=== PATIENT | female | born 1975 | race Hispanic/Latino ===

== ENCOUNTER 2018-05-12 21:07 | Emergency (ER) | payer SELFPAY ==
--- NOTE | 2018-05-12 22:42 | ER ---
Nurse's Notes [facility] Name: Halley Hope Age: 42 yrs Sex: Female : 1975 Arrival Date: 05/12/2018 Time: 21:09 Bed 15 Private MD: Diagnosis: Headache;Vomiting without nausea;Dysmenorrhea, unspecified;Urinary tract infection, site not specified Presentation: 05/12 21:33 Presenting complaint: Patient states: Headache that began around 1900, sensitivity to lp1 light, nausea; Began antibiotics due to toothache today. Transition of care: patient was not received from another setting of care. Onset of symptoms was May 12, 2018 at 19:00. Risk Assessment: Do you want to hurt yourself or someone else? Patient reports no desire to harm self or others. Initial Sepsis Screen: Does the patient meet any 2 criteria? No. Patient's initial sepsis screen is negative. Does the patient have a suspected source of infection? No. Patient's initial sepsis screen is negative. Care prior to arrival: None. 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 - Social history:: Smoking status: Patient/guardian denies using tobacco. - Ebola Screening: : No symptoms or risks identified at this time. Screenin:29 Abuse screen: Denies threats or abuse. Denies injuries from another. Nutritional ao screening: No deficits noted. Tuberculosis screening: No symptoms or risk factors identified. Fall Risk None identified. Assessment: 22:22 General: Appears in no apparent distress. comfortable, Behavior is calm, cooperative, ao appropriate for age. Pain: Denies pain. Neuro: Level of Consciousness is awake, alert, obeys commands, Oriented to person, place, time, situation, Appropriate for age Moves all extremities. Full function Gait is steady, Speech is normal. Cardiovascular: Heart tones S1 S2 Capillary refill < 3 seconds Patient's skin is warm and dry. Respiratory: Airway is patent Respiratory effort is even, unlabored, Respiratory pattern is regular, symmetrical. GI: Abdomen is non-distended. : Urine is liudmila blood, Reports Menstruation cycle. EENT: No signs and/or symptoms were reported regarding the EENT system. Derm: Skin is intact, Skin is pink, warm \T\ dry. normal, Skin temperature is warm. Musculoskeletal: Circulation, motion, and sensation intact. Range of motion:. 22:50 Reassessment: Pending DC due to urine sample. ao 23:24 Reassessment: Patient provided with urine sample and was bloody since patient report to ao be on her menstruation cycle. Dr Sarkar was notified and would like to do straight cath. Patient agree and waiting to get straight cath done. Vital Signs: 21:35 BP 134 / 98; Pulse 70; Resp 18; Temp 99(O); Pulse Ox 100% on R/A; Weight 74.84 kg; lp1 Height 5 ft. 2 in. (157.48 cm); Pain 6/10; 23:29 BP 123 / 88; Pulse 72; Resp 16; Pulse Ox 100% ; ao 21:35 Body Mass Index 30.18 (74.84 kg, 157.48 cm) lp1 ED Course: 21:09 Patient arrived in ED. ds1 21:35 Triage completed. lp1 21:36 Arm band placed on right wrist. lp1 22:12 Sebastián Sarkar MD is Attending Physician. jon 22:23 Hema Antunez, ALICIA is Primary Nurse. ao 23:29 Patient has correct armband on for positive identification. Pulse ox on. NIBP on. ao 05/13 00:51 No provider procedures requiring assistance completed. Patient did not have IV access ao during this emergency room visit. Administered Medications: 05/12 22:42 Not Given (Duplicate Order): Zofran 4 mg IVP once; over 2 minutes jon 22:49 Not Given (Patient Refused): Zofran 4 mg PO once ao 05/13 00:37 Drug: Augmentin 875 mg Route: PO; ao 01:00 Follow up: Response: No adverse reaction ao Outcome: 05/12 22:42 Discharge ordered by . jon 05/13 00:51 Discharged to home ambulatory. ao Condition: stable Discharge instructions given to patient, Instructed on discharge instructions, follow up and referral plans. Demonstrated understanding of instructions, follow-up care, medications, Prescriptions given X 3. 00:51 Patient left the ED. ao Signatures: Sebastián Sarkar MD MD cha Sanford, Demi ds1 Aretha Littlejohn RN RN lp1 Hema Antunez RN RN ao
--- NOTE | 2018-05-12 22:42 | EDPHYS ---
Physician Documentation [facility] Name: Halley Hope Age: 42 yrs Sex: Female : 1975 Arrival Date: 05/12/2018 Time: 21:09 Bed 15 Private MD: ED Physician Sebastián Sarkar HPI: 05/12 22:39 This 42 yrs old Female presents to ER via Ambulatory with complaints of jon Nausea, Headache. 22:39 The patient presents to the emergency department with nausea. Onset: The jon symptoms/episode began/occurred just prior to arrival. Possible causes: allergic reaction to codeine, better now. The symptoms are aggravated by nothing. The symptoms are alleviated by nothing. Associated signs and symptoms: Pertinent positives: nausea, vomiting. Severity of symptoms: At their worst the symptoms were mild in the emergency department the symptoms have improved moderately. The patient has experienced similar episodes in the past, a few times. 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 - Social history:: Smoking status: Patient/guardian denies using tobacco. - Ebola Screening: : No symptoms or risks identified at this time. ROS: 22:40 Constitutional: Negative for fever, chills, and weight loss, Eyes: Negative for injury, jon pain, redness, and discharge, ENT: Negative for injury, pain, and discharge, Neck: Negative for injury, pain, and swelling, Cardiovascular: Negative for chest pain, palpitations, and edema, Respiratory: Negative for shortness of breath, cough, wheezing, and pleuritic chest pain, Back: Negative for injury and pain, : Negative for injury, bleeding, discharge, and swelling, MS/Extremity: Negative for injury and deformity, Skin: Negative for injury, rash, and discoloration, Psych: Negative for depression, anxiety, suicide ideation, homicidal ideation, and hallucinations, Allergy/Immunology: Negative for hives, rash, and allergies, Endocrine: Negative for neck swelling, polydipsia, polyuria, polyphagia, and marked weight changes. 22:40 Abdomen/GI: Positive for nausea, vomiting. 22:40 Neuro: Positive for headache. Exam: 22:40 Constitutional: This is a well developed, well nourished patient who is awake, alert, jon and in no acute distress. Head/Face: Normocephalic, atraumatic. Eyes: Pupils equal round and reactive to light, extra-ocular motions intact. Lids and lashes normal. Conjunctiva and sclera are non-icteric and not injected. Cornea within normal limits. Periorbital areas with no swelling, redness, or edema. ENT: Nares patent. No nasal discharge, no septal abnormalities noted. Tympanic membranes are normal and external auditory canals are clear. Oropharynx with no redness, swelling, or masses, exudates, or evidence of obstruction, uvula midline. Mucous membranes moist. Neck: Trachea midline, no thyromegaly or masses palpated, and no cervical lymphadenopathy. Supple, full range of motion without nuchal rigidity, or vertebral point tenderness. No Meningismus. Chest/axilla: Normal chest wall appearance and motion. Nontender with no deformity. No lesions are appreciated. Cardiovascular: Regular rate and rhythm with a normal S1 and S2. No gallops, murmurs, or rubs. Normal PMI, no JVD. No pulse deficits. Respiratory: Lungs have equal breath sounds bilaterally, clear to auscultation and percussion. No rales, rhonchi or wheezes noted. No increased work of breathing, no retractions or nasal flaring. Abdomen/GI: Soft, non-tender, with normal bowel sounds. No distension or tympany. No guarding or rebound. No evidence of tenderness throughout. Back: No spinal tenderness. No costovertebral tenderness. Full range of motion. Skin: Warm, dry with normal turgor. Normal color with no rashes, no lesions, and no evidence of cellulitis. MS/ Extremity: Pulses equal, no cyanosis. Neurovascular intact. Full, normal range of motion. Neuro: Awake and alert, GCS 15, oriented to person, place, time, and situation. Cranial nerves II-XII grossly intact. Motor strength 5/5 in all extremities. Sensory grossly intact. Cerebellar exam normal. Normal gait. Psych: Awake, alert, with orientation to person, place and time. Behavior, mood, and affect are within normal limits. 22:40 Neck: ROM/movement: is normal, no acute changes, Meningeal signs: are not present, Kernig's sign is negative, Brudzinski's sign is negative. Vital Signs: 21:35 BP 134 / 98; Pulse 70; Resp 18; Temp 99(O); Pulse Ox 100% on R/A; Weight 74.84 kg; lp1 Height 5 ft. 2 in. (157.48 cm); Pain 6/10; 23:29 BP 123 / 88; Pulse 72; Resp 16; Pulse Ox 100% ; ao 21:35 Body Mass Index 30.18 (74.84 kg, 157.48 cm) lp1 MDM: 22:12 Patient medically screened. [facility] 22:43 Data reviewed: vital signs, nurses notes, lab test result(s), urinalysis. [facility] 05/12 22:39 Order name: Urine Dipstick-Ancillary (obtain specimen); Complete Time: 22:51 [facility] 05/12 22:39 Order name: Urine Test (obtain specimen); Complete Time: 22:51 jon Administered Medications: 22:42 Not Given (Duplicate Order): Zofran 4 mg IVP once; over 2 minutes [facility] 22:49 Not Given (Patient Refused): Zofran 4 mg PO once ao 05/13 00:37 Drug: Augmentin 875 mg Route: PO; ao 01:00 Follow up: Response: No adverse reaction ao Disposition: 05/12/18 22:42 Discharged to Home. Impression: Headache, Vomiting without nausea, Dysmenorrhea, unspecified, Urinary tract infection, site not specified. - Condition is Stable. - Discharge Instructions: General Headache Without Cause, Nausea and Vomiting, Adult, General Headache Without Cause, [id number]. - Prescriptions for Zofran 4 mg Oral Tablet - take 1 tablet by ORAL route every 12 hours As needed; 10 tablet. Augmentin 875- 125 mg Oral Tablet - take 1 tablet by ORAL route every 12 hours for 7 days; 14 tablet. Tramadol 50 mg Oral Tablet - take 1 tablet by ORAL route every 8 hours as needed; 24 tablet. - Medication Reconciliation Form, Thank You Letter, Antibiotic Education, Prescription Opioid Use form. - Follow up: Private Physician; When: 2 - 3 days; Reason: Recheck today's complaints, Continuance of care, Re-evaluation by your physician. - Problem is new. - Symptoms have improved. 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 [facility] 22:36 22:18 URINE --ANCILLARY+UC.LAB.BRZ ordered. [facility] 05/13 00:31 05/12 22:42 05/12/2018 22:42 Discharged to Home. Impression: Headache; Vomiting without jon nausea. Condition is Stable. Forms are Medication Reconciliation Form, Thank You Letter, Antibiotic Education, Prescription Opioid Use. Follow up: Private Physician; When: 2 - 3 days; Reason: Recheck today's complaints, Continuance of care, Re-evaluation by your physician. Problem is new. Symptoms have improved. [facility] 05/13 00:51 00:31 05/12/2018 22:42 Discharged to Home. Impression: Headache; Vomiting without ao nausea; Dysmenorrhea, unspecified; Urinary tract infection, site not specified. Condition is Stable. Discharge Instructions: General Headache Without Cause, Nausea and Vomiting, Adult, General Headache Without Cause, Lrnu-uv-[id number]. Prescriptions for Zofran 4 mg Oral Tablet - take 1 tablet by ORAL route every 12 hours As needed; 10 tablet. and Forms are Medication Reconciliation Form, Thank You Letter, Antibiotic Education, Prescription Opioid Use. Follow up: Private Physician; When: 2 - 3 days; Reason: Recheck today's complaints, Continuance of care, Re-evaluation by your physician. Problem is new. Symptoms have improved. [facility]
[2018-05-12] MEDS ORDERED: ONDANSETRON 4 MG (ODT) TAB ONE (22:54)
[2018-05-13] MEDS ORDERED: AMOX/K CLAV 875 MG TAB ONE (00:40)
== END 2018-05-13 00:51 | disposition home or self-care (01) ==
LOC: ER 21:07
DX: N39.0 Urinary tract infection, site not specified (principal); R11.10 Vomiting, unspecified; N94.6 Dysmenorrhea, unspecified; Z88.5 Allergy status to narcotic agent
CPT/HCPCS: 99283

== ENCOUNTER 2021-10-31 23:26 | Emergency (ER) | payer BC, SELFPAY ==
--- OUTSIDE RECORDS SUMMARY | 2021-10-31 23:29 | XMS REPORT | Continuity of Care Document ---
:1975 Author Organization [facility] t Address [address] [place] [address] Care Team Providers Name Role Phone ERROL Bear [facility] Primary Care Physic suellen Unavailable GREEN Attending Clinician Unavailable Green LEAVE MANAGER Attending Clinician Only, Db Test Attending Clinician Unavailable Lab, Fam Pob I Attending Clinician Unavailable Candy LEAVE MANAGER, J Attending Clinician Les LEAVE MANAGER, B Attending Clinician LES B Attending Clinician Unavailable Doctor Unassigned, Name Attending Clinician Unavailable Payers Payer Name Policy Type Policy Number Effective Date Expiration Date S [employer]achi [facility] [id number] 2021 00:00:00 [place] [place] [id number] 2020 2021 WOMEN 00:00:00 00:00:00 Problems Condition Condition Condition Status Onset Resolution Last Treating Co mments Source Name Details Category Date Date Treatment Clinician Date No known No known Disease Unive rs active active ity of problems problems [facility] Allergies, Adverse Reactions, Alerts Allergy Allergy Status Severity Reaction(s) Onset Inactive Treating Comm ents Source Name Type Date Date Clinician CODEINE DRUG Active High N/V Univers INGREDI 3- ity of 00:00: [address] Codeine Propensi Active Nausea Univers ty to and/or 10-31 ity of adverse Vomiting 00:00: [place] reaction 00 [facility] [place] NO KNOWN Drug Active Univers ALLERGIE Class ity of S [facility] Social History Social Habit Start Date Stop Date Quantity Comments Source Exposure to Not sure [facility] SARS-CoV-2 (event) Medica l Branch Sex Assigned At [birth year] [facility] 00:00:00 00:00:00 Medical Branch Smoking Status Start Date Stop Date Source Unknown if ever smoked [facility] Medications Ordered Filled Start Stop Current Ordering Indication Dosage Frequency Signature Comments Components Source Medication Medication Date Date Medication? Clinician (SIG) Name Name ondansetron 0 Yes [id number] 4mg Take 1 Univers 4 mg 3-29 tablet by ity of disintegrat 00:00: mouth [place] ing tablet 00 every 8 Medica l (eight) Branch hours as needed for Nausea and Vomiting (N/V). dexamethaso 2019-08- No 10mg 10 mg, IV Univers ne 09-19 12-15 Push, ity of (DECADRON 21:45: 21:06 ONCE, 1 [place] 00 :00 dose, Tue Medi wil injection 07/19/20 Branch 10 mg at 1545, STAT ketorolac 2019-08- No 15mg 15 mg, Unive rs (TORADOL) 09-19 12-15 Slow IV ity of injection 21:45: 21:03 Push, [place] 15 mg 00 :00 ONCE, 1 Medical dose, [facility] Branch 07/19/20 at 1545, RADHA
Fa culty member approving Restricted medication : ODALYS WHEELER diphenhydrA 2019-08 2020- No 25mg 25 mg, Uni vers MINE 2- 12-15 Slow IV ity of (BENADRYL) 21:45: 21:08 Push, [place] injection 00 :00 ONCE, 1 Medical 25 mg dose, [facility] Branch 07/19/20 at 1545, STAT metoclopram 2019-08- No 10mg 10 mg, Uni vers nalini HCl - 12-15 Slow IV ity of (REGLAN) 21:45: 21:04 Push, [place] injection 00 :00 ONCE, 1 Medical 10 mg dose, [facility] Branch 07/19/20 at 1545, RADHA NaCl 0.9% 2019-08 2020- No 1000mL at 999 Uni vers (NS) bolus 2-15 12-15 mL/hr, ity of infusion 20:45: 21:37 1,000 mL, Jesus as 1,000 mL 00 :00 IV Medical Infusion, Branch ONCE, 1 dose, [facility] 07/19/20 at 1445, RADHA cloNIDine 2020 2020- No .1mg 0.1 mg, Univ ers (CATAPRES) 2-15 12-15 Oral, ity of tablet 0.1 20:45: 19:35 ONCE, 1 Jesus as mg 00 :00 dose, [facility] 07/19/20 Branch at 1445, STAT metoclopram 2019-08 Yes [id number] 10mg Take 1 Univers nalini HCl 10 2-15 tablet by ity of mg tablet 00:00: mouth [place] 00 every 6 Medical (six) Branch hours as needed for Nausea and Vomiting (N/V). butalbital- 2019-08 Yes [id number] 1{tbl} Take 1 Univers acetaminoph 2-15 tablet by ity of en-caff 00:00: mouth [place] 50-325-40 00 every 6 Medical mg tablet (six) Branch hours as needed for Pain (scale 7-10). metoclopram 2019-08 Yes [id number] 10mg Take 1 Univers nalini HCl 10 2-15 tablet by ity of mg tablet 00:00: mouth [place] 00 every 6 Medical (six) Branch hours as needed for Nausea and Vomiting (N/V). butalbital- 2019-08 Yes [id number] 1{tbl} Take 1 Univers acetaminoph 2-15 tablet by ity of en-caff 00:00: mouth [place] 50-325-40 00 every 6 Medical mg tablet (six) Branch hours as needed for Pain (scale 7-10). metoclopram 2019-08 Yes [id number] 10mg Take 1 Univers nalini HCl 10 2-15 tablet by ity of mg tablet 00:00: mouth [place] 00 every 6 Medical (six) Branch hours as needed for Nausea and Vomiting (N/V). butalbital- 2019-08 Yes [id number] 1{tbl} Take 1 Univers acetaminoph 2-15 tablet by ity of en-caff 00:00: mouth [place] 50-325-40 00 every 6 Medical mg tablet (six) Branch hours as needed for Pain (scale 7-10). metoclopram 2019-08 Yes [id number] 10mg Take 1 Univers nalini HCl 10 2-15 tablet by ity of mg tablet 00:00: mouth [place] 00 every 6 Medical (six) Branch hours as needed for Nausea and Vomiting (N/V). butalbital- 2019-08 Yes [id number] 1{tbl} Take 1 Univers acetaminoph 2-15 tablet by ity en-caff 00:00: mouth [place] 50-325-40 00 every 6 Medical mg tablet (six) Branch hours as needed for Pain (scale 7-10). No known No Univers medications [facility] Vital Signs Vital Name Observation Time Observation Value Comments Source Systolic blood 2021-10-31 14:43:00 122 mm[Hg] Univer sity [facility] Diastolic blood 2021-10-31 14:43:00 90 mm[facility]Hg] [facility] 2021-10-31 14:43:00 98 /min [facility] Body temperature 2021-10-31 14:43:00 36.89 Niya [facility] Respiratory rate 2021-10-31 14:43:00 16 /min [facility] Body height 2021-10-31 14:43:00 157.5 cm [facility] Body weight 2021-10-31 14:43:00 78.019 kg [facility] BMI 2021-10-31 14:43:00 31.46 kg/m2 [facility] Oxygen saturation in 2021-10-31 14:43:00 98 /min University of Arterial blood by [facility] Pulse oximetry Branch Systolic blood 2020-07-19 21:32:00 118 mm[facility]Hg[facility] 2020-07-19 21:32:00 75 mm[Hg] [facility] rate 2020-07-19 21:32:00 58 /min [facility] Respiratory rate 2020-07-19 21:32:00 16 /min [facility] Oxygen saturation in 2020-07-19 21:32:00 99 /min University of Arterial blood by [facility] Pulse oximetry Branch Body temperature 2020-07-19 19:28:00 36.89 [facility] Body weight 2020-07-19 19:28:00 77.111 kg [facility] Procedures Procedure Date / Time Performed Performing Clinician Sourc e POCT MOLECULAR FLU 2021-10-31 14:54:00 Juany Varmacarmen Mapo y [facility] POCT TEST 2020-07-19 19:33:00 Miguel Angel Malik [facility] NOTICE OF PRIVACY 2020-07-19 19:21:48 Doctor Unassigned, No [facility] CONSENT/REFUSAL FOR 2020-07-19 19:21:31 Doctor Unassigned, No [facility] AND Name [facility] TREATMENT REFERRAL- Doctor Unassigned, No Univer [facility] REQUEST/RESPONSE Name [facility] Plan of Care Planned Activity Planned Date Details Comments Source Encounters Start End Encounter Admission Attending Care Care Encounter Source Date/Time Date/Time Type Type Clinicians Facility Department ID 2021-10-31 2021-10-31 Outpatient R ISADORA [facility] [id number] Univers 09:50:00 [facility]11[facility] 2021-10-31 2021-10-31 Urgent Isadora [facility] [id number] Univers 09:50:00 10:11:20 Care [employer] [id number] it y of [place] [id number] Jesus as LAURIE?BLEA [id number] [address] MEDICAL OFFICE BUILDING 2021-10-31 2021-10-31 Outpatient R [facility] [id number] Univers 09:50:00 09:50:00 [id number] [facility] 2021-08-09 2021-08-09 Outpatient R ISADORA [facility] [id number] Univers 16:00:00 18:41:51 [facility] 2021-08-09 2021-08-09 Laboratory Only, Ang Db Test [facility] 1.2.8 40.114 [id number] Univers 16:00:00 16:15:00 Only IsadoraVitrina [id number] [facility] [id number] Jesus as LAURIE?BLEA [id number] [address] MEDICAL OFFICE BUILDING 2021-08-09 2021-08-09 Outpatient [facility] [id number] Univers 16:00:00 16:00:00 [id number] ity of [facility] 2020-07-27 2020-07-27 Laboratory Lab, Adc Fam Pob I [facility] 1.2. [id number] [id number] Univers 18:58:08 19:18:08 Only Sera Gupta [facility] [id number] ity of [place] [id number] Jesus as Professio [id number] Hi dical nal [address] [place] Office [facility] 2020-07-19 2020-07-19 Emergency Les, [facility] [id number] Univers 13:23:00 15:39:00 Miguel Angel B Richelle [id number] i ty of [place] [id number] [place] [id number] [facility] [address] [place] 2020-07-19 2020-07-19 Emergency X LES, [facility] ERT [id number] Univers 13:23:00 13:23:00 MIGUEL ANGEL ity of [facility] Orders Doctor STACY [id number] Univers 00:00:00 00:00:00 Only Unassigned RAEGAN [id number] ity of [place] [facility] [id number] Jesus as [id number] [facility] [address] [place] Results Test Description Test Time Test Comments Results Result Comments Source POCT MOLECULAR FLU 2021-10-31 15:06:17 Test Item Value Reference Range Interpretation Comme nts POCT Molecular FluA (test code = 66610-8) Negative Negative POCT Molecular FluB (test code = 76477-9) Negative Negative Lab Interpretation (test code = 85603-4) [id number] 19:33:00 Test Item Value Reference Range Interpretation Comments POCT PREG (test code = 1605) negative Lab Interpretation (test code = Normal 42813-8) [facility]
[2021-11-01 00:49] LABS: Urine Blood 3+ (Negative); Urine Glucose Negative (Negative); Urine Protein 1+ (Negative); Urine Specific Gravity <=1.005 (1.005-1.030); Urine pH 5.5 (5.0-7.0)
[2021-11-01] MEDS ORDERED: NA CHLORIDE 0.9% 2,000 ML ONE (00:56)
[2021-11-01] MEDS ORDERED: FAMOTIDINE 20 MG/2 ML VIAL IV ONE (00:56)
[2021-11-01] MEDS ORDERED: CIPROFLOXACIN 400mg IV 400 MG/200 ML BAG IV ONE (00:57)
[2021-11-01] MEDS ORDERED: METRONIDAZOLE 500mg IVPB 500 MG/100 ML BAG IV ONE (00:57)
[2021-11-01 01:04] LABS: Absolute Lymphocytes (CBC) 0.7 K/uL (0.7-4.9); Hematocrit 40.4 % (36.0-45.0); Lymphocytes % 17.4 % (15.3-44.8); MPV 8.5 fL (7.6-11.3); RBC Red Blood Cell Count 4.91 M/uL (3.86-4.86)
[2021-11-01 01:15] LABS: ALT/SGPT 26 U/L (12-78); AST/SGOT 16 U/L (15-37); Albumin 3.5 g/dL (3.4-5.0); Alkaline Phosphatase 62 U/L (45-117); BUN Blood Urea Nitrogen 8 mg/dL (7-18); Bicarbonate 24 mmol/L (21-32); Bilirubin Total 0.4 mg/dL (0.2-1.0); Glucose Level 119 mg/dL (74-106); Lipase 64 U/L (73-393); Potassium 3.1 mmol/L (3.5-5.1); Protein, Total 7.5 g/dL (6.4-8.2); Sodium Level 135 mmol/L (136-145)
[2021-11-01] MEDS ORDERED: POTASSIUM 25 MEQ EFFERV TAB ONE (02:04)
[2021-11-01] MEDS ORDERED: NA CHLORIDE 0.9% 1,000 ML ONE (02:04)
[2021-11-01] MEDS ORDERED: KCL 20 MEQ/100 mL IVPB 100 ML IV ONE (02:06)
[2021-11-01] MEDS ORDERED: MORPHINE 4 MG/ML SYR ONE (02:07)
[2021-11-01] MEDS ORDERED: ONDANSETRON 4 MG/2 ML VIAL ONE (02:07)
--- NOTE | 2021-11-01 04:40 | ER ---
Nurse's Notes [facility] Name: Halley Hope Age: 46 yrs Sex: Female : 1975 Arrival Date: 10/31/2021 Time: 23:30 Bed 19 Private MD: Diagnosis: Diarrhea, unspecified;Abdominal pain, Generalized;Hypokalemia Presentation: 10/31 23:40 Chief complaint: Patient states: nausea, vomiting and dizziness starting yesterday. lg3 symptoms getting worse. ABD cramping and diarrhea starting today. went to PCP today. neg for flu. covid results pending. Coronavirus screen: Client denies travel out of the [place] in the last 14 days. Client presents with at least one sign or symptom that may indicate coronavirus-19. Standard/surgical mask placed on the client. Ebola Screen: No symptoms or risks identified at this time. Initial Sepsis Screen: Does the patient meet any 2 criteria? No. Patient's initial sepsis screen is negative. Does the patient have a suspected source of infection? No. Patient's initial sepsis screen is negative. Risk Assessment: Do you want to hurt yourself or someone else? Patient reports no desire to harm self or others. Onset of symptoms was October 30, 2021. 23:40 Method Of Arrival: Ambulatory lg3 23:40 Acuity: RENÉ 3 lg3 Triage Assessment: 23:43 General: Appears in no apparent distress. uncomfortable, Behavior is calm, cooperative. lg3 Pain: Complains of pain in abdomen. EENT: No deficits noted. No signs and/or symptoms were reported regarding the EENT system. Neuro: No deficits noted. Level of Consciousness is awake, alert, obeys commands, Oriented to person, place, time, situation. Cardiovascular: No deficits noted. Respiratory: No deficits noted. Airway is patent Trachea midline Respiratory effort is even, unlabored, Respiratory pattern is regular, symmetrical. GI: Abdomen is round non-distended, Reports lower abdominal pain, upper abdominal pain, cramping, diarrhea, intolerance of fluids, intolerance of food, nausea, vomiting. : No deficits noted. No signs and/or symptoms were reported regarding the genitourinary system. Derm: No deficits noted. No signs and/or symptoms reported regarding the dermatologic system. Skin is intact, is healthy with good turgor, Skin is dry. Musculoskeletal: No deficits noted. No signs and/or symptoms reported regarding the musculoskeletal system. Circulation, motion, and sensation intact. Range of motion: intact in all extremities. 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 - Social history:: Smoking status: Patient denies any tobacco usage or history of. Patient/guardian denies using alcohol, street drugs. - Family history:: not pertinent. Screenin:49 Abuse screen: Denies threats or abuse. Denies injuries from another. Nutritional lg3 screening: No deficits noted. Tuberculosis screening: No symptoms or risk factors identified. Fall Risk None identified. Assessment: 23:40 General: Appears comfortable, ill, Behavior is calm, cooperative, appropriate for age. kd3 11/01 03:32 Reassessment: Patient and/or family updated on plan of care and expected duration. Pain kd3 level reassessed. Patient is alert, oriented x 3, equal unlabored respirations, skin warm/dry/pink. Patient states feeling better. General: Appears comfortable, ill. Neuro: Level of Consciousness is awake, alert, obeys commands, Oriented to person, place, time, situation. Cardiovascular: Patient's skin is warm and dry. Respiratory: Airway is patent Trachea midline Respiratory effort is even, unlabored. Vital Signs: 10/31 23:40 BP 135 / 89; Pulse 97; Resp 17 S; Temp 98.0(TE); Pulse Ox 99% on R/A; Weight 78.02 kg lg3 (R); Height 5 ft. 2 in. (157.48 cm) (R); Pain 8/10; 11/01 03:36 BP 129 / 90; Pulse 82; Resp 16; Pulse Ox 100% on R/A; kd3 04:52 BP 131 / 92; Pulse 84; Resp 16; Pulse Ox 100% on R/A; kd3 10/31 23:40 Body Mass Index 31.46 (78.02 kg, 157.48 cm) lg3 ED Course: 10/31 23:30 Patient arrived in ED. ag3 23:43 Triage completed. lg3 23:43 Arm band placed on right wrist. lg3 23:58 Sebastián Sarkar MD is Attending Physician. [facility] 11/01 00:08 Zulema Cleary RN is Primary Nurse. kd3 00:45 Inserted saline lock: 20 gauge in right antecubital area, using aseptic technique. ds4 Blood collected. 03:33 Patient has correct armband on for positive identification. kd3 04:00 CT Abd/Pelvis - IV Contrast Only In Process Unspecified. EDMS 04:53 No provider procedures requiring assistance completed. IV discontinued, intact, kd3 bleeding controlled, No redness/swelling at site. Pressure dressing applied. Administered Medications: 01:13 Drug: Cipro (ciprofloxacin) 400 mg Volume: 200 ml; Route: IVPB; Infused Over: 60 mins; kd3 Site: right antecubital; 03:30 Follow up: IV Status: Completed infusion kd3 03:30 Follow up: Response: No adverse reaction kd3 01:13 Drug: Flagyl (metroNIDAZOLE) 500 mg Volume: 100 ml; Route: IVPB; Rate: 200 ml/hr; kd3 Infused Over: 30 mins; Site: right antecubital; 03:30 Follow up: Response: No adverse reaction; IV Status: Completed infusion kd3 01:14 Drug: NS 0.9% 1000 ml Route: IV; Rate: 1 bolus; Site: right antecubital; kd3 03:30 Follow up: Response: No adverse reaction; IV Status: Completed infusion kd3 01:14 Drug: Pepcid (famotidine) 20 mg Route: IVP; Site: right antecubital; kd3 03:31 Follow up: Response: No adverse reaction kd3 02:00 Drug: NS 0.9% 1000 ml Route: IV; Rate: 1 bolus; Site: right antecubital; kd3 03:30 Follow up: Response: No adverse reaction; IV Status: Completed infusion kd3 02:20 Drug: Potassium Chloride 20 mEq Route: IV; Rate: per protocol; Site: right antecubital; kd3 03:29 Follow up: Response: No adverse reaction kd3 03:29 Follow up: IV Status: Completed infusion kd3 02:20 Drug: Potassium Effervescent Tablet 25 mEq Route: PO; kd3 03:29 Follow up: Response: No adverse reaction kd3 03:29 Drug: NS 0.9% 1000 ml Route: IV; Rate: 1 bolus; Site: right antecubital; kd3 03:30 Follow up: Response: No adverse reaction; IV Status: Completed infusion kd3 Outcome: 04:39 Discharge ordered by MD. webb 04:53 Discharged to home ambulatory. kd3 04:53 Condition: stable 04:53 Instructed on discharge instructions, follow up and referral plans. medication usage, Demonstrated understanding of instructions, follow-up care, medications, Prescriptions given X 5 04:53 Patient left the ED. kd3 Signatures: Dispatcher [employer] EDMS Sebastián Sarkar MD MD cha Swanson, Donovan ds4 Arti Mills3 Nazanin Interiano, RN RN lg3 Zulema Cleary RN RN kd3 Corrections: (The following items were deleted from the chart) 03:32 03:31 General: Appears comfortable, ill, Behavior is calm, cooperative, appropriate for kd3 age, kd3
--- NOTE | 2021-11-01 04:40 | EDPHYS ---
Physician Documentation [facility] Name: Halley Hope Age: 46 yrs Sex: Female : 1975 Arrival Date: 10/31/2021 Time: 23:30 Bed 19 Private MD: ED Physician Sebastián Sarkar HPI: 11/01 00:38 This 46 yrs old Female presents to ER via Ambulatory with complaints of jon Diarrhea. 00:38 The patient presents to the emergency department with diarrhea, that is continuous. jon Onset: The symptoms/episode began/occurred 1 day(s) ago. Possible causes: unknown. The symptoms are aggravated by nothing. The symptoms are alleviated by nothing. Associated signs and symptoms: The patient has no apparent associated signs or symptoms. The patient has not experienced similar symptoms in the past. 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 - Social history:: Smoking status: Patient denies any tobacco usage or history of. Patient/guardian denies using alcohol, street drugs. - Family history:: not pertinent. ROS: 11/01 00:38 Constitutional: Negative for fever, chills, and weight loss, Eyes: Negative for injury, jon pain, redness, and discharge, ENT: Negative for injury, pain, and discharge, Neck: Negative for injury, pain, and swelling, Cardiovascular: Negative for chest pain, palpitations, and edema, Respiratory: Negative for shortness of breath, cough, wheezing, and pleuritic chest pain, Back: Negative for injury and pain, : Negative for injury, bleeding, discharge, and swelling, MS/Extremity: Negative for injury and deformity, Skin: Negative for injury, rash, and discoloration, Neuro: Negative for headache, weakness, numbness, tingling, and seizure, Psych: Negative for depression, anxiety, suicide ideation, homicidal ideation, and hallucinations, Allergy/Immunology: Negative for hives, rash, and allergies, Endocrine: Negative for neck swelling, polydipsia, polyuria, polyphagia, and marked weight changes, Hematologic/Lymphatic: Negative for swollen nodes, abnormal bleeding, and unusual bruising. Abdomen/GI: Positive for abdominal pain, diarrhea. Exam: 00:38 Constitutional: This is a well developed, well nourished patient who is awake, alert, jon and in no acute distress. Head/Face: Normocephalic, atraumatic. Eyes: Pupils equal round and reactive to light, extra-ocular motions intact. Lids and lashes normal. Conjunctiva and sclera are non-icteric and not injected. Cornea within normal limits. Periorbital areas with no swelling, redness, or edema. ENT: Nares patent. No nasal discharge, no septal abnormalities noted. Tympanic membranes are normal and external auditory canals are clear. Oropharynx with no redness, swelling, or masses, exudates, or evidence of obstruction, uvula midline. Mucous membranes moist. Neck: Trachea midline, no thyromegaly or masses palpated, and no cervical lymphadenopathy. Supple, full range of motion without nuchal rigidity, or vertebral point tenderness. No Meningismus. Chest/axilla: Normal chest wall appearance and motion. Nontender with no deformity. No lesions are appreciated. Cardiovascular: Regular rate and rhythm with a normal S1 and S2. No gallops, murmurs, or rubs. Normal PMI, no JVD. No pulse deficits. Respiratory: Lungs have equal breath sounds bilaterally, clear to auscultation and percussion. No rales, rhonchi or wheezes noted. No increased work of breathing, no retractions or nasal flaring. Abdomen/GI: Soft, non-tender, with normal bowel sounds. No distension or tympany. No guarding or rebound. No evidence of tenderness throughout. Back: No spinal tenderness. No costovertebral tenderness. Full range of motion. Skin: Warm, dry with normal turgor. Normal color with no rashes, no lesions, and no evidence of cellulitis. MS/ Extremity: Pulses equal, no cyanosis. Neurovascular intact. Full, normal range of motion. Neuro: Awake and alert, GCS 15, oriented to person, place, time, and situation. Cranial nerves II-XII grossly intact. Motor strength 5/5 in all extremities. Sensory grossly intact. Cerebellar exam normal. Normal gait. Psych: Awake, alert, with orientation to person, place and time. Behavior, mood, and affect are within normal limits. Vital Signs: 10/31 23:40 BP 135 / 89; Pulse 97; Resp 17 S; Temp 98.0(TE); Pulse Ox 99% on R/A; Weight 78.02 kg lg3 (R); Height 5 ft. 2 in. (157.48 cm) (R); Pain 8/10; 11/01 03:36 BP 129 / 90; Pulse 82; Resp 16; Pulse Ox 100% on R/A; kd3 04:52 BP 131 / 92; Pulse 84; Resp 16; Pulse Ox 100% on R/A; kd3 10/31 23:40 Body Mass Index 31.46 (78.02 kg, 157.48 cm) lg3 MDM: 10/31 23:58 Patient medically screened. [facility] 11/01 00:41 Differential diagnosis: Nonspecific abd pain, gastritis, cholecystitis, pancreatitis, jon appendicitis, diverticulitis, viral gastroenteritis, gastroenteritis. Data reviewed: vital signs, nurses notes, lab test result(s), radiologic studies, CT scan. 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 Counseling: I had a detailed discussion with the patient and/or guardian regarding: the historical points, exam findings, and any diagnostic results supporting the discharge/admit diagnosis, lab results, radiology results, the need for further work-up and treatment in the hospital. 11/01 00:00 Order name: CBC with Diff; Complete Time: 01:16 [facility] 11/01 00:00 Order name: CMP; Complete Time: 01:16 [facility] 11/01 00:00 Order name: Lipase; Complete Time: 01:16 [facility] 11/01 00:00 Order name: Fecal Leukocyte Stain [facility] 11/01 00:00 Order name: Occult Blood; Complete Time: 02:19 [facility] 11/01 00:00 Order name: Stool Culture [facility] 11/01 00:49 Order name: Urine Dipstick-Ancillary; Complete Time: 01:16 EDMS 11/01 01:11 Order name: Test, Serum; Complete Time: 02:00 mw2 11/01 03:34 Order name: CT Abd/Pelvis - IV Contrast Only [facility] 11/01 00:00 Order name: IV Saline Lock; Complete Time: 00:45 jon 11/01 00:00 Order name: Labs collected and sent; Complete Time: 00:45 jon 11/01 00:00 Order name: Urine Dipstick-Ancillary (obtain specimen); Complete Time: 00:45 jon 11/01 00:00 Order name: Urine Test (obtain specimen); Complete Time: 00:45 jon 11/01 03:58 Order name: PO challenge; Complete Time: 04:21 jon Administered Medications: 01:13 Drug: Cipro (ciprofloxacin) 400 mg Volume: 200 ml; Route: IVPB; Infused Over: 60 mins; kd3 Site: right antecubital; 03:30 Follow up: IV Status: Completed infusion kd3 03:30 Follow up: Response: No adverse reaction kd3 01:13 Drug: Flagyl (metroNIDAZOLE) 500 mg Volume: 100 ml; Route: IVPB; Rate: 200 ml/hr; kd3 Infused Over: 30 mins; Site: right antecubital; 03:30 Follow up: Response: No adverse reaction; IV Status: Completed infusion kd3 01:14 Drug: NS 0.9% 1000 ml Route: IV; Rate: 1 bolus; Site: right antecubital; kd3 03:30 Follow up: Response: No adverse reaction; IV Status: Completed infusion kd3 01:14 Drug: Pepcid (famotidine) 20 mg Route: IVP; Site: right antecubital; kd3 03:31 Follow up: Response: No adverse reaction kd3 02:00 Drug: NS 0.9% 1000 ml Route: IV; Rate: 1 bolus; Site: right antecubital; kd3 03:30 Follow up: Response: No adverse reaction; IV Status: Completed infusion kd3 02:20 Drug: Potassium Chloride 20 mEq Route: IV; Rate: per protocol; Site: right antecubital; kd3 03:29 Follow up: Response: No adverse reaction kd3 03:29 Follow up: IV Status: Completed infusion kd3 02:20 Drug: Potassium Effervescent Tablet 25 mEq Route: PO; kd3 03:29 Follow up: Response: No adverse reaction kd3 03:29 Drug: NS 0.9% 1000 ml Route: IV; Rate: 1 bolus; Site: right antecubital; kd3 03:30 Follow up: Response: No adverse reaction; IV Status: Completed infusion kd3 Disposition Summary: 11/01/21 04:39 Discharge Ordered Location: Home [facility] Problem: new [facility] Symptoms: have improved [facility] Condition: Stable [facility] Diagnosis - Diarrhea, unspecified jon - Abdominal pain, Generalized jon - Hypokalemia jon Followup: [facility] - With: Private Physician - When: 2 - 3 days - Reason: Recheck today's complaints, Continuance of care, Re-evaluation by your physician Discharge Instructions: - Discharge Summary Sheet [facility] - Abdominal Pain, Adult [facility] - Food Choices to Help Relieve Diarrhea, Adult jon - Diarrhea, Adult jon - Abdominal Pain, Adult, [id number] jon - Potassium Content of Foods jon - Diarrhea, Adult, [id number] jon - Hypokalemia [facility] Forms: - Medication Reconciliation Form [facility] - Thank You Letter [facility] - Antibiotic Education [facility] - Prescription Opioid Use [facility] - Work release form kd3 Prescriptions: - Flagyl 500 mg Oral Tablet - take 1 tablet by ORAL route every 6 hours for 7 days; 28 tablet; Refills: 0, [facility] Product Selection Permitted - Pepcid 20 mg Oral Tablet - take 1 tablet by ORAL route every 12 hours for 10 days; 20 tablet; Refills: 0, [facility] Product Selection Permitted - Cipro 500 mg Oral Tablet - take 1 tablet by ORAL route every 12 hours for 7 days; 14 tablet; Refills: 0, [facility] Product Selection Permitted - dicyclomine 20 mg Oral Tablet - take 1 tablet by ORAL route 4 times per day; 28 tablet; Refills: 0, Product [facility] Selection Permitted - ondansetron 8 mg Oral tablet,disintegrating - take 1 tablet by ORAL route every 8 hours; 15 tablet; Refills: 0, Product [facility] Selection Permitted Signatures: Dispatcher [employer] Sebastián Marti MD MD cha Attema, Lee, PHARMACY STUDENT-C PHARMACY STUDENT-Cla1 Nazanin Interiano, RN RN lg3 Zulema Cleary, RN RN kd3
[2021-11-01 05:00] VITALS: TEMP 98
[2021-11-01 05:01] VITALS: O2SAT 100
[2021-11-01 05:02] VITALS: BP 131/92
--- NOTE | 2021-11-01 13:08 | RAD REPORT ---
EXAM DESCRIPTION: CT - Abdomen Pelvis W Contrast - 11/01/2021 6:42 am CLINICAL HISTORY: ABD PAIN COMPARISON: None. TECHNIQUE: CT ABDOMEN PELVIS WITH IV CONTRAST on 11/01/2021 3:34 AM CDT This exam was performed according to our departmental dose-optimization program, which includes autom ated exposure control, adjustment of the mA and/or kV according to patient size and/or use of iterati ve reconstruction technique. FINDINGS: Lower lungs are clear. Abdomen: Liver is diffusely fatty in attenuation. There is no biliary dilatation. The pancreas and sp christina are normal in appearance. The adrenal glands and kidneys are unremarkable. Abdominal aorta is normal in course and caliber without aneurysm. There is no free air. There is no r etroperitoneal adenopathy. Pelvis: There is no bowel obstruction. Urinary bladder is unremarkable. There is no free fluid. Uteru s is normal in size. Appendix is normal. Skeleton: There are no acute osseous findings. No suspicious bony lesions. IMPRESSION: No acute inflammatory process. No renal or ureteral calculi. Electronically signed by: Ivan Zuñiga MD 11/01/2021 4:33 AM CDT Due to temporary technical issues with the PACS/Fluency reporting system, reports are being signed by the in house radiologists without review as a courtesy to insure prompt reporting. The interpreting radiologist is fully responsible for the content of the report.
== END 2021-11-01 04:53 | disposition home or self-care (01) ==
LOC: ER 23:26
DX: E87.6 Hypokalemia (principal); R10.84 Generalized abdominal pain; Z88.5 Allergy status to narcotic agent
CPT/HCPCS: 87045; 85025; 36415; 89055; 84703; 82274; 87046; 81003; 83690; 80053; 74177; Q9967; J3480; J7030 ×2; J2405; J0744